=== PATIENT | male | born 1945 ===

== ENCOUNTER 2021-06-23 06:22 | Day surgery (SDC) | payer OTHER ==
[~2021-06-23 06:22] MED LIST: CLONAZEPAM1 M1 PO; ECOTRIN81 MG PO; HUMULIN 70100 UNIT/2 SUBCUTANEO; LIPITOR20 MG PO; METFORMIN HCL500 M2 PO; PRILOSEC OTC20 MG PO; ZESTRIL40 M1 PO
[2021-06-23] MEDS ORDERED: PERCOCET 5-3251 EACH PO (11:37)
== END 2021-06-23 14:45 | disposition home or self-care (01) ==
LOC: CIR.AMB 06:22 → EDBD 11:15 → CIR.AMB 14:45
PROVIDERS: ATTEND Surgery
DX: K62.0 Anal polyp (principal); Z20.822 Contact with and (suspected) exposure to COVID-19